=== PATIENT | female | born 1960 ===

== ENCOUNTER 2018-04-13 18:13 | Outpatient (REF) | payer MEDICARE, MEDICAID, SELFPAY ==
--- NOTE | 2018-04-13 17:00 | PAPFT_PTH ---
PATIENT: Sybil Urbina LOC: [facility] U#:[id number] AGE/SX: 57/F ROOM: RE04/13/[address]: Paloma Lunsford : 1960 BED: DIS: 04/13/2018 SPEC #: [id number] RECD: 04/14/18 13:04 STATUS: BRANDY JOHNSON #: [id number] MAYRA: 04/13/18 17:[address]: Paloma Lunsford DEPT: [facility] Cytology RECD BY: Eva Baeza Tissues: 1 - CX/ENDOCX FOR PAP SMEARS Procedures: PAP THIN PREP/[facility] Screening HPV DNA PROBE Comments: [id number]
[2018-04-13 22:04] LABS: Abs Immature Grans 0.02 k/cumm (0.0-0.09); Absolute Basophil Count 0.03 k/cumm (0.0-0.2); Absolute Eosinophil Count 0.24 k/cumm (0.0-0.7); Absolute Lymphocyte Count 2.01 k/cumm (1.2-3.4); Absolute Monocyte Count 0.75 k/cumm (0.11-0.7); Absolute Neutrophil Count 4.99 k/cumm (1.2-6.7); Basophils % 0.4; HCT 42.4 % (40.0-50.0); Immature Grans % 0.2; Mean Corpuscular Hemoglobin 31.2 pg (27.0-33.0); Mean Corpuscular Volume 94.4 fL (80-95); Mean Platelet Volume 11.5 fL (8.0-11.0); Monocytes % 9.3; Neutrophils % 62.1; Platelet Count 183 x1000/uL (130-400); RBC 4.49 m/cumm (4.50-6.00); RBC Distribution Width 13.3 % (11.8-14.1); White Blood Cell Count 8.04 k/cumm (4.4-10.8)
[2018-04-13 22:23] LABS: Cholesterol 238 mg/dL (50-200); HDL Cholesterol 45 mg/dL (40-60); LDL CHOLESTEROL 176 mg/dL (<100); TSH (W/Ref FT4) 2.16 uIU/mL (0.358-3.74); Triglyceride 113 mg/dL (30-150)
[2018-04-13 22:28] LABS: Hemoglobin A1C 5.8 % (4.5-6.2)
[2018-04-15 09:51] LABS: Hepatitis C Ab w Rflx HCV PCR Reactive (NEGAT)
== END 2018-04-13 18:14 ==
LOC: NCHCN 18:13
PROVIDERS: PCP Nurse Practitioner Family; Visit Provider Nurse Practitioner Family
DX: R53.83 Other fatigue (principal); E66.9 Obesity, unspecified; Z13.1 Encounter for screening for diabetes mellitus; Z11.59 Encounter for screening for other viral diseases; Z12.4 Encounter for screening for malignant neoplasm of cervix; Z11.51 Encounter for screening for human papillomavirus (HPV)
CPT/HCPCS: 80061; 83721; 86803; 88142; 83036; 84443; 85025; 87522; 87624